=== PATIENT | female | born 1955 | race Caucasian/White ===

== ENCOUNTER 2024-11-09 10:03 | Day surgery (SDC) | payer MEDICARE, OTHER, SELFPAY ==
--- NOTE | 2024-11-02 17:32 | PAT.ANESEVAL ---
Pre-Assessment Diagnosis/Proposed Procedure Planned Operative Procedure(s): (L) Excision left index finger mucous cyst, possible adjacent tissue transfer Anesthesia History Anesthesia History - ductfixing plumber: Anesthesia History - ductfixing plumber Hx Hospitalization No 11/02/24 14:02 Any Problems With Anesthesia No 11/02/24 14:02 Cholinesterase deficiency No 11/02/24 14:02 You/Your Family Experience No 11/02/24 14:02 fever (hyperthermia) with Relationship Recent Exposure to Contagious Disease Does patient have nerve No 11/02/24 14:02 stimulator Patient instructed to have device shut off --Does patient have Pacemaker or ICD? When Was Last Pacemaker Check QUESTION #4 FULL TEXT: You/Your Family Experience fever (hyperthermia) with Anesthesia Last Oral Intake Last Oral intake: Last Oral Intake NPO since Meds taken in AM with sips of water? Meds patient instructed to take am of surgery PONV PONV - ductfixing plumber: PONV - ductfixing plumber Female Yes 11/02/24 14:02 HX of Motion Sickness No 11/02/24 14:02 HX of N/V After Surgery No 11/02/24 14:02 Non-Smoker Yes 11/02/24 14:02 Duration of Surgery greater No 11/02/24 14:02 than 60 minutes Number of Risk Factors 2 11/02/24 14:02 PONV Score Moderate Risk 11/02/24 14:02 Respiratory Assessment Respiratory Assessment - ductfixing plumber: Respiratory Tract Infection Hx - ductfixing plumber Hx Respiratory Tract Infection No 11/02/24 14:02 STOP Sleep Apnea STOP Sleep Apnea - ductfixing plumber: STOP Sleep Apnea - ductfixing plumber Hx Hypertension Yes 11/02/24 14:02 Hx Sleep Apnea No 11/02/24 14:02 CPAP BIPAP Do you snore loudly (louder No 11/02/24 14:02 than talking or can be heard Do you often feel tired/ No 11/02/24 14:02 fatigued/ sleepy during daytime? Has anyone observed you stop No 11/02/24 14:02 breathing during sleep? STOP Results Negative 11/02/24 14:02 QUESTION #5 FULL TEXT : Do you snore loudly (louder than talking or can be heard through closed doors)? Tobacco Use History Tobacco Use History - ductfixing plumber: Tobacco Use History - ductfixing plumber Tobacco Use Smoking Status Never smoker 11/02/24 14:02 Hx Tobacco Use No 11/02/24 14:02 Years Smoking Packs Smoked per Day Smoking Cessation Date was within the last 15 years Hx Smoking Cessation Date Hx Smoking Cessation Counseling Hematologic Medial History Hematologic Hx - ductfixing plumber: Hematologic Medical Hx - child development specialist Hx of Blood Transfusion No 11/02/24 14:02 Hx of Transfusion in last 3 No 11/02/24 14:02 Months Date of Last Transfusion (if within last 3 months) Ever experience any problems No 11/02/24 14:02 with transfusion(s)? Specify any problems Hx of Preganancy in last 3 No 11/02/24 14:02 Months Nurse Filling Out Transfusion [place] 11/02/24 14:02 & Questions: Date: 11/02/24 11/02/24 14:02 Time: 14:09 11/02/24 14:02 Patient unable to answer at this time (ie. confused, unrespo /Reproduction History /Reproductive History - ductfixing plumber: /Reproductive Hx- ductfixing plumber Hx Now No 11/02/24 14:02 Gestational Age (in weeks): EDC: Hx Hx Para Hx Section [facility] Medical History (Updated 11/02/24 @ 14:08 by Delmi Lea) Wears glasses Depression Anxiety Alcohol use Arthritis Non-smoker History of edema Bone spur of ankle Home Medications ?Medication ?Instructions ?Recorded ?Last Taken ?Type albuterol sulfate 2.5 mg/3 mL 2.5 mg inhalation Q6H 10/25/24 Unknown History (0.083 %) solution for nebulization amlodipine 10 mg tablet 10 mg PO QDAY 10/25/24 Unknown History azelastine 137 mcg (0.1 %) nasal 2 spray intranasal DAILY 10/25/24 Unknown History spray fexofenadine 180 mg tablet 180 mg PO Q24H 10/25/24 Unknown History (Juana Allergy) fluticasone fur. 100 mcg-umeclid 1 inh inhalation Q24H 10/25/24 Unknown History 62.5 mcg-vilant 25 mcg inhalat.powder (Trelegy Ellipta) meloxicam 15 mg tablet 15 mg PO QDAY 10/25/24 Unknown History multivitamin 1 tab PO QAM 10/25/24 Unknown History sertraline 50 mg tablet 75 mg PO DAILY 10/25/24 Unknown History omega 7-fue-mvr-fish oil 1,200 mg 1 cap PO DAILY 11/02/24 Unknown History (144 mg-216 mg) capsule (Fish Oil) Allergy/AdvReac Type Severity Reaction Status Date / Time No Known Allergies Allergy Verified 11/02/24 13:59 Family History Other Asthma Cancer Heart disease Surgical History (Updated 11/02/24 @ 14:03 by Delmi Lea) History of Achilles tendon repair H/O sinus surgery Social History Smoking Status: Never smoker Audit: Pertinent Findings Pertinent Findings Echo (EF%) pertinent findings: 10/22/2022. [facility]. Normal size function EF 66%. Recommendation Anesthesia Recommendation Anesthesia recommendation: OPTIMIZED for anesthesia
[2024-11-09 10:31] VITALS: BP 149/75; PULSE 53; RESP 16; TEMP 36.8; O2SAT 98; BMI 31.8
--- NOTE | 2024-11-09 10:33 | PCM.HP.STD ---
HPI - General HPI Narrative Linsey Rhodes is a delightful 69-year-old female with a left index finger mucous cyst, referred to us by local medical equipment technician. She reports it has been there for about 8 months and has started to drain. She has not had any infections with it. She is sick with draining would like it excised. She is worried that it will become infected. Patient is not a smoker. She does not have any history of bleeding or clotting problems. She does not have diabetes. Current Encounter (DATE OF SURGERY H&P UPDATE): I saw and examined the patient this morning in pre-operative holding. We discussed risks and benefits of today's surgery and they would like to proceed. NO CHANGE in health history since last seen and evaluated. Ready to proceed with surgery. [facility] Medical History (Updated 11/02/24 @ 14:08 by Delmi Lea) Wears glasses Depression Anxiety Alcohol use Arthritis Non-smoker History of edema Bone spur of ankle Home Medications ?Medication ?Instructions ?Recorded ?Last Taken ?Type albuterol sulfate 2.5 mg/3 mL 2.5 mg inhalation Q6H 10/25/24 Unknown History (0.083 %) solution for nebulization amlodipine 10 mg tablet 10 mg PO QDAY 10/25/24 Unknown History azelastine 137 mcg (0.1 %) nasal 2 spray intranasal DAILY 10/25/24 Unknown History spray fexofenadine 180 mg tablet 180 mg PO Q24H 10/25/24 Unknown History (Juana Allergy) fluticasone fur. 100 mcg-umeclid 1 inh inhalation Q24H 10/25/24 Unknown History 62.5 mcg-vilant 25 mcg inhalat.powder (Trelegy Ellipta) meloxicam 15 mg tablet 15 mg PO QDAY 10/25/24 Unknown History multivitamin 1 tab PO QAM 10/25/24 Unknown History sertraline 50 mg tablet 75 mg PO DAILY 10/25/24 Unknown History omega 5-ihl-gvo-fish oil 1,200 mg 1 cap PO DAILY 11/02/24 11/02/24 History (144 mg-216 mg) capsule (Fish Oil) doxycycline hyclate 100 mg capsule 100 mg PO BID 7 days #14 caps 11/09/24 Unknown Rx oxycodone 5 mg tablet 5 mg PO DAILY PRN pain 5 days #5 11/09/24 Unknown Rx tabs Allergy/AdvReac Type Severity Reaction Status Date / Time No Known Allergies Allergy Verified 11/09/24 10:31 Family History Other Asthma Cancer Heart disease Surgical History (Updated 11/09/24 @ 10:[address] Wolfgang Winters MD) History of Achilles tendon repair H/O sinus surgery Social History Smoking Status: Never smoker Physical Exam Narrative Left upper Extremity Inspection: Mucous cyst over the left index finger DIP joint. 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 Baseline mallet deformity. No signs of infection of the DIP joint Motor: Able to bend and extend all MP, PIP, and DIP joints. Sensory: Intact to light touch on the radial and ulnar borders. Vascular: Finger tips are warm and well perfused with <2 second capillary refill. Assessment & Plan Assessment/Plan (1) Mucous cyst of finger: PLAN: I talked to the patient extensively about the risks of surgery, including bleeding, infection, damage to surrounding structures, mallet deformity, collateral ligament injuries, poor scaring, surgical site dehiscence and wound formation, need for wound care, need for repeat operations, failure to obtain the desired result, and risk of recurrence, as well as the risk of anesthesia. We talked extensively about the issues with excising these as they are immediately over the joint and in continuity with the joint so you can have wound infections and joint problems as a complication. The benefits and alternatives of this surgery were also discussed. All of their questions were answered, and they agreed to proceed with surgery. I talked her extensively about options for surgery including incision over the distal interphalangeal joint with debridement of the cyst stalk and osteophytes, followed by monitoring and cyst involution over time. I also talked to her about direct excision of the cyst with local soft tissue rearrangement/adjacent tissue transfer depending on the quality of the soft tissue. We talked about the risks of flap failure and wound healing problems, as well as infection and need for repeat surgeries. She agreed to proceed. Plan for excision of the left index finger mucous cyst under local CPT codes for insurance prior authorization are as follows: [id number], [id number]
[2024-11-09 10:49] VITALS: BP 129/70; BP 135/73; BP 137/65; BP 140/80; BP 142/80; BP 142/81; BP 142/82; BP 145/74; BP 146/80; BP 147/78; BP 154/82; O2SAT 100; O2SAT 97; O2SAT 98; O2SAT 99
[2024-11-09] MEDS: Cefazolin 2 GM in 0.9% Normal Saline (100mL Bag) 100 ML IV (11:02)
[2024-11-09] MEDS: Bupivacaine 0.25% 30 ML Vial (11:08)
[2024-11-09] MEDS: Lidocaine 1% (20 ml mdv) 20 ML Vial (11:08)
--- NOTE | 2024-11-09 11:15 | CYST_PTH ---
PATIENT: CECILIA BRADY LOC: [facility] [place] U#:[id number] AGE/SX: 69/F ROOM: RE11/09/[address]: Dr. Wolfgang Winters MD : 1955 BED: DIS: 11/09/2024 SPEC #: [id number] RECD: 11/09/24 12:11 STATUS: MATT TRISTA #: [id number] KANE: 11/09/24 11:[address]: Wolfgang Winters DEPT: SURGICAL PATHOLOGY RECD BY: Gab Woods Tissues: A - CYST Procedures: Surgery Specimen Level III HEADER OPERATION: Excision left index finger mucous cyst PRE-OP DIAGNOSIS: Left index finger mucous cyst TISSUE SUBMITTED: A- left index finger cyst MICROSCOPIC DIAGNOSIS A. Left index finger, cyst, excision: * Squamous epithelium with intracorneal and intraepidermal neutrophilic microabscess and pustule formation MICROSCOPIC DESCRIPTION Slides are reviewed. GROSS DESCRIPTION A. Received in formalin in a container labeled with the patient's name, date of , and left index finger cyst is an unoriented and disrupted fragment of white-pink, indurated tissue measuring 0.9 x 0.8 x 0.3 cm. There is possible white-mackenzie, disrupted skin at the periphery. A distinct resection margin is not identified. It is quadrisected to reveal white-pink to conley-mackenzie surfaces. Submitted entirely in A1. [facility] 11-09-2024 CPT:42797
[2024-11-09] MEDS: Lidocaine 1% /Epi 1:100 (20ml) 20 ML Vial (11:30)
[2024-11-09 12:00] VITALS: BP 134/87; PULSE 53; RESP 16; TEMP 37.1; O2SAT 98
--- NOTE | 2024-11-09 15:08 | OP.PCM_ITS ---
Operative Report (Standard) Operative Information Date of Procedure: 11/09/24 Pre-Operative Diagnosis: Left index finger mucous cyst Post-Operative Diagnosis: Same Surgery/Procedure Performed: 1) excision of left index finger mucous cyst (CPT: 99099) 2) adjacent soft tissue transfer for closure of left index finger cyst, 2 x 3 cm (CPT: 97420) scarrer: Yes Sheeting Puller: Nicolette Her Tasks completed by housekeeper and laundry assistant: Retracting Type of Anesthesia: Local (10 cc of 50/50 mixture of 1% lidocaine and 0.25% Marcaine ) RN Documented Start/Stop Times: Operation Date: 11/09/24 11:15 Case Time Into Pre-Op 11/09/24 10:17 Out of Pre-Op 11/09/24 10:51 Anesthesia Start 11/09/24 10:58 Into Room 11/09/24 10:58 Procedure Start 11/09/24 11:13 Procedure End 11/09/24 11:51 Anesthesia End 11/09/24 11:54 Into Phase II Recovery 11/09/24 11:54 Out of Room 11/09/24 11:54 Out of Phase II 11/09/24 12:27 Procedure Start Time: 11:13 Procedure Stop Time: 11:51 Select all DRAINS/GRAFTS/IMPLANTS that apply: None Estimated Blood Loss: minimal Specimen collected: Yes Description of specimen(s) removed: Mucous cyst, left index Description of surgery: INDICATIONS: Linsey Rhodes is a delightful 69-year-old female with history of a mucous cyst on the left index finger. Presents today for excision of the cyst. I talked the patient extensively about the risks of surgery, including bleeding, infection (especially of the DIP joint), damage to surrounding structures (including mallet deformity), surgical site dehiscence and wound formation, need for wound care, need for repeat operations, failure to obtain the desired result (return of the cyst), and the risks of anesthesia. All of their questions were answered, and they agreed to proceed with surgery. OPERATIVE DETAILS: Patient was correctly identified in preoperative holding and the correct mucous cyst and digit were marked with the patient in agreement. They were taken back to the operating room where they are administered local for anesthesia. They were prepped and draped in sterile fashion. All proper timeouts were performed. We began the procedure by excising the cyst circumferentially with a small triangular wedge created adjacent to the cyst so as to give more exposure to the potential underlying osteophytes. The cyst was excised and the joint was examined for osteophytes/spurs. The cyst was sitting over the terminal extension of the EDC and the stalk was coming from the radial side of the DIP joint. With a curette and bipolar electrocautery, the stalk of the cyst and the underlying osteophytes were excised in an interval between the residual colla teral ligament and terminal slip of the EDC. The wound was then washed out with copious amounts of normal saline and the specimen sent to pathology. We then turned our attention to designing a curvilinear flap over the dorsum of the middle phalanx. Care was taken to raise the flap using a 15 blade scalpel beneath the subcutaneous plane for full-thickness adipocutanoues advancement flap which was rotated and advanced into position for a total local soft tissue rearrangement of 2 x 3 centimeters for closure of the cyst defect. Hemostasis was obtained with bipolar electrocautery. The flap was then sutured into position with 4-0 nylon horizontal mattress sutures. A Xeroform, Chinmay, and AlumaFoam splint with Coban (DIP joint immobilized in extension, PIP joint free) were then placed for dressing. The patient was awakened and taken to the PACU in stable condition. POST-OPERATIVE PLAN: Follow-up on Thursday to exam of the wound. The patient can take the dressing off and 48 hours and change it (Xeroform daily, Kerlix daily, and AlumaFoam and Coban). They were encouraged to move the PIP joint and immobilize DIP joint in extension for 1 week. They are not to use this finger, and they are not to use the hand for lifting. Surgical Findings: * Consistent with left index finger mucous cyst. * Osteophytes identified underneath the terminal portions of the EDC that were removed with a curette. * Inadequate skin for primary closure over the joint and required adjacent tissue transfer for closure of the wound following excision for a tension-free and durable closure. Complications Complications: No Admit VTE Documentation VTE Mechan Device Prophylaxis: SCD's
== END 2024-11-09 12:28 | disposition home or self-care (01) ==
LOC: SDC 10:07 → AC 10:08
PROVIDERS: PCP Nurse Practitioner Family; Referring Provider Surgery Plastic and Reconstructive Surgery; Visit Provider Surgery Plastic and Reconstructive Surgery
PROC: (CPT 26055; principal; 2024-11-09 11:00)
DX: M71.342 Other bursal cyst, left hand (principal); M25.742 Osteophyte, left hand
CPT/HCPCS: 26160; 14040; 88304; A4216